=== PATIENT | female | born 1965 | race Caucasian/White ===

== ENCOUNTER 2018-04-24 04:14 | Emergency (ER) | payer SELFPAY ==
[2018-04-24 04:25] VITALS: BP 154/75; PULSE 58; TEMP 98.1; BMI 33.3
--- NOTE | 2018-04-24 04:28 | PDOC ---
History of Present Illness - General History Source: Patient Exam Limitations: No Limitations - History of Present Illness Initial Comments: 04/24/18 04:40 The patient is a 52 year old female with no significant past medical history who presents to the emergency department with a sore throat for about 1 week. The patient reports she has been putting off coming into the ED but her throat pain has worsened. The patient reports that her throat pain is worsened with eating. She state s that she has noted some associated bleeding with her throat pain and her pain is uncomfortable. The patient does endorse smoking several cigarettes a day. She denies any other symptoms or complaints. She denies any cough, sich contact, fever, chills, nausea or vomiting. <Suha Hawkins - Last Filed: 04/24/18 04:40> <Sherry Landaverde - Last Filed: 04/24/18 05:16> - General Chief Complaint: Sore Throat Stated Complaint: THROAT PAIN Time Seen by Provider: 04/24/18 04:28 Past History <Suha Hawkins - Last Filed: 04/24/18 04:40> - Past Medical History COPD: No HTN: Yes - Surgical History Cholecystectomy: Yes - Immunization History Immunization Up to Date: Yes - Suicide/Smoking/Psychosocial Hx Smoking History: Current every day smoker Have you smoked in the past 12 months: Yes Number of Cigarettes Smoked Daily: 5 Information on smoking cessation initiated: No Hx Alcohol Use: No Drug/Substance Use Hx: No <Sherry Landaverde - Last Filed: 04/24/18 05:16> - Past Medical History Allergies/Adverse Reactions: Allergies Allergy/AdvReac Type Severity Reaction Status Date / Time No Known Allergies Allergy Verified 04/24/18 04:25 Review of Systems - Review of Systems Able to Perform ROS?: Yes Comments:: 04/24/18 04:40 GENERAL/CONSTITUTIONAL: No fever or chills. No weakness. HEAD, EYES, EARS, NOSE AND THROAT: (+)throat pain. No change in vision. No ear pain or discharge. No sore throat. GASTROINTESTINAL: No nausea, vomiting, diarrhea or constipation. GENITOURINARY: No dysuria, frequency, or change in urination. CARDIOVASCULAR: No chest pain or shortness of breath. RESPIRATORY: No cough, wheezing, or hemoptysis. MUSCULOSKELETAL: No joint or muscle swelling or pain. No neck or back pain. SKIN: No rash NEUROLOGIC: No headache, vertigo, loss of consciousness, or change in strength/ sensation. ENDOCRINE: No increased thirst. No abnormal weight change. HEMATOLOGIC/LYMPHATIC: No anemia, easy bleeding, or history of blood clots. ALLERGIC/IMMUNOLOGIC: No hives or skin allergy. <Suha Hawkins - Last Filed: 04/24/18 04:40> *Physical Exam - Vital Signs Last Vital Signs Temp Pulse Resp BP Pulse Ox 98.1 F 58 L 17 154/75 98 04/24/18 04:22 04/24/18 04:22 04/24/18 04:22 04/24/18 04:22 04/24/18 04:22 - Physical Exam Comments: 04/24/18 04:41 GENERAL: Awake, in no acute distress HEAD: No signs of trauma EYES: PERRLA, EOMI, sclera anicteric, conjunctiva clear, visual acuity grossly intact ENT: Auricles normal inspection, hearing grossly normal, nares patent, oropharynx clear without exudates. Moist mucosa NECK: Normal ROM, supple, no lymphadenopathy, JVD, or masses LUNGS: Breath sounds equal, clear to auscultation bilaterally. No wheezes, and no crackles. Normal work of breathing. HEART: Regular rate and rhythm, normal S1 and S2, no murmurs, rubs or gallops ABDOMEN: Soft, nontender, normoactive bowel sounds. No guarding, no rebound. No masses. Non-distended. CHEST WALL: BACK: No midline tenderness. EXTREMITIES: Normal range of motion, no edema. No clubbing or cyanosis. No erythema, or tenderness NEUROLOGICAL: Alert, and fully oriented x4, Cranial nerves II through XII grossly intact. Normal speech, normal gait. DTRs 2/4 bilaterally. SKIN: Warm, Dry, normal turgor, no rashes or lesions noted. <Suha Hawkins - Last Filed: 04/24/18 04:40> - Vital Signs Last Vital Signs Temp Pulse Resp BP Pulse Ox 98.1 F 58 L 17 154/75 98 04/24/18 04:22 04/24/18 04:22 04/24/18 04:22 04/24/18 04:22 04/24/18 04:22 <Sherry Landaverde - Last Filed: 04/24/18 05:16> Moderate Sedation - Procedure Monitoring Vital Signs: Procedure Monitoring Vital Signs Temperature 98.1 F 04/24/18 04:22 Pulse Rate 58 L 04/24/18 04:22 Respiratory Rate 17 04/24/18 04:22 Blood Pressure 154/75 04/24/18 04:22 O2 Sat by Pulse Oximetry (%) 98 04/24/18 04:22 <Suha Hawkins - Last Filed: 04/24/18 04:40> - Procedure Monitoring Vital Signs: Procedure Monitoring Vital Signs Temperature 98.1 F 04/24/18 04:22 Pulse Rate 58 L 04/24/18 04:22 Respiratory Rate 17 04/24/18 04:22 Blood Pressure 154/75 04/24/18 04:22 O2 Sat by Pulse Oximetry (%) 98 04/24/18 04:22 <Sherry Landaverde Adrianna - Last Filed: 04/24/18 05:16> *DC/Admit/Observation/Transfer - Attestations Scribe Attestion: 04/24/18 04:41 Documentation prepared by Suha Hawkins, acting as medical center director for Sherry Landaverde DO, MD. <Suha Hawkins - Last Filed: 04/24/18 04:40> - Discharge Dispostion Decision to Admit order: No - Attestations Physician Attestion: 04/24/18 05:15 I, Dr Sherry Landaverde, attest that this document has been prepared under my direction and personally reviewed by me in its entirety. I further attest, that it accurately reflects all work, procedures and medical decision making performed by me. <Sherry Landaverde Adrianna - Last Filed: 04/24/18 05:16> Diagnosis at time of Disposition: Sore throat - Discharge Dispostion Disposition: HOME Condition at time of disposition: Stable - Referrals Referrals: Jeet Ramirez MD [Staff Physician] - - Patient Instructions Printed Discharge Instructions: Sore Throat Additional Instructions: You have been given you have been given follow-up with the medical clinic. He should establish care there and they will assist you with additional follow-up such as ENT as necessary. If you develop fever or difficulty swallowing or difficulty breathing return to the emergency department.
== END 2018-04-24 05:21 | disposition home or self-care (01) ==
LOC: JER 04:14
DX: J02.9 Acute pharyngitis, unspecified (principal); I10 Essential (primary) hypertension
CPT/HCPCS: 87070; 87880; 99281-25

== ENCOUNTER 2018-07-24 20:23 | Emergency (ER) | payer OTHER | END 2018-07-25 02:09 | disposition home or self-care (01) | LOC: JER 07-25 02:09 → JERFT 20:23 ==

== ENCOUNTER 2018-08-28 01:00 | Emergency (ER) | payer OTHER ==
--- NOTE | 2018-08-28 01:39 | PDOC ---
Medical Decision Making - Medical Decision Making 08/28/18 01:39 Patient seen by the advanced practice provider under my direct supervision. Ancillary testing reviewed as necessary. I agree with plan as outlined by the advanced practice provider. *DC/Admit/Observation/Transfer Diagnosis at time of Disposition: Sore throat - Discharge Dispostion Condition at time of disposition: Fair - Referrals Referrals: Jeet Ramirez MD [Primary Care Provider] - - Patient Instructions - Post Discharge Activity
--- NOTE | 2018-08-28 01:53 | PDOC ---
History of Present Illness - General Chief Complaint: Pain, Acute Stated Complaint: WEAKNESS/THROAT PAIN Time Seen by Provider: 08/28/18 01:29 History Source: Patient - History of Present Illness Initial Comments: 08/28/18 03:41 52 year old female c/o throat burning sensation for the last several months. reports that she 2 weeks stopped smoking cigarettes unsure if the symptoms are related. denies abdominal pain, chest pain, nausea/ vomiting, fever/ chills Past History - Past Medical History Allergies/Adverse Reactions: Allergies Allergy/AdvReac Type Severity Reaction Status Date / Time No Known Allergies Allergy Verified 08/28/18 02:27 Home Medications: Ambulatory Orders Cefuroxime Axetil [Cefuroxime] 500 mg PO BID #20 tablet 07/25/18 Phenazopyridine HCl [Pyridium] 100 mg PO BID #4 tablet 07/25/18 Mag Hydrox/Al Hydrox/Simeth [Mylanta Suspension -] 30 ml PO Q6H PRN #1 bottle COPD: No HTN: Yes - Surgical History Cholecystectomy: Yes - Immunization History Immunization Up to Date: Yes - Suicide/Smoking/Psychosocial Hx Smoking History: Never smoked Have you smoked in the past 12 months: Yes Number of Cigarettes Smoked Daily: 5 Hx Alcohol Use: No Drug/Substance Use Hx: No *Physical Exam - Vital Signs 08/28/18 03:43 Last Vital Signs Temp Pulse Resp BP Pulse Ox 98.9 F 55 L 16 131/83 99 08/28/18 01:00 08/28/18 01:00 08/28/18 01:00 08/28/18 01:00 08/28/18 01:00 - Physical Exam General Appearance: Yes: Appropriately Dressed HEENT: positive: Normal ENT Inspection Respiratory/Chest: positive: Lungs Clear, Normal Breath Sounds Cardiovascular: positive: Regular Rhythm, Regular Rate Gastrointestinal/Abdominal: positive: Normal Bowel Sounds, Soft. negative: Tender Musculoskeletal: positive: Normal Inspection Integumentary: positive: Normal Color, Dry, Warm Neurologic: positive: Fully Oriented, Alert, Normal Mood/Affect Medical Decision Making - Medical Decision Making 08/28/18 04:20 A: sore throat (chronic) P: [facility] outpatient GO/ ENT referral given *DC/Admit/Observation/Transfer Diagnosis at time of Disposition: Sore throat - Discharge Dispostion Disposition: HOME Condition at time of disposition: Fair - Prescriptions Prescriptions: Mag Hydrox/Al Hydrox/Simeth [Mylanta Suspension -] 30 ml PO Q6H PRN #1 bottle PRN Reason: Dyspepsia - Referrals Referrals: Jeet Ramirez MD [Primary Care Provider] - Call tomorrow Rishabh,Ney Macdonald MD [Staff Physician] - Stephan Ott MD [Staff Physician] - - Patient Instructions Printed Discharge Instructions: Sore Throat Additional Instructions: please follow up with your doctor as soon as possible - Post Discharge Activity Forms/Work/School Notes: Back to Work
[2018-08-28 02:27] VITALS: BP 131/83; PULSE 55; TEMP 98.9; BMI 25.0
[2018-08-28] MEDS ORDERED: MAG HYDROX/AL HYDROX/SIMETH 30 ML UNIT-DOSE CUP PO ONE (02:30)
[2018-08-28] MEDS ORDERED: MAG HYDROX/AL HYDROX/SIMETH 30 ML UNIT-DOSE CUP ONE (02:44)
== END 2018-08-28 04:00 | disposition home or self-care (01) ==
LOC: JER 01:00
DX: J02.9 Acute pharyngitis, unspecified (principal)
CPT/HCPCS: 99281-25

== ENCOUNTER 2019-03-19 18:44 | Emergency (ER) | payer OTHER ==
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
[2019-03-19 18:56] VITALS: BP 131/88; PULSE 64; TEMP 98; BMI 33.3
[2019-03-19] MEDS ORDERED: KETOROLAC TROMETHAMINE 60 MG/2 ML VIAL IM ONE (19:55)
[2019-03-19] MEDS ORDERED: KETOROLAC TROMETHAMINE 60 MG/2 ML VIAL ONE (20:01)
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
== END 2019-03-19 21:15 | disposition home or self-care (01) ==
LOC: JERFT 18:44
PROC: 3E0233Z Introduction of Anti-inflammatory into Muscle, Percutaneous Approach (ICD-10-PCS; principal; 2019-03-19)
DX: S16.1XXA Strain of muscle, fascia and tendon at neck level, initial encounter (principal); S80.02XA Contusion of left knee, initial encounter; V43.52XA Car driver injured in collision with other type car in traffic accident, initial encounter; Y92.414 Local residential or business street as the place of occurrence of the external cause; Y93.89 Activity, other specified; Y99.8 Other external cause status; I10 Essential (primary) hypertension
CPT/HCPCS: 99281-25

== ENCOUNTER 2020-11-03 21:33 | Emergency (ER) | payer OTHER ==
[2020-11-03 21:58] VITALS: BP 141/77; PULSE 62; TEMP 97; BMI 32.4
[2020-11-03 22:49] LABS: EPI CELLS 3 /uL (0-25.1); HYALINE CASTS 1 /uL (0-3.1); URINE APPEARANCE CLOUDY; URINE BACTERIA 258 /uL (0-1359); URINE BILIRUBIN NEGATIVE (NEGATIVE); URINE COLOR YELLOW; URINE GLUCOSE (UA) NEGATIVE (NEGATIVE); URINE KETONE NEGATIVE (NEGATIVE); URINE LEUK ESTERASE 3+ (NEGATIVE); URINE NITRITE NEGATIVE (NEGATIVE); URINE PROTEIN 2+ (NEGATIVE); URINE RBC 1099 /uL (0-23.9); URINE UROBILINOGEN 0.2 mg/dL (0.2-1.0); URINE WBC 2196 /uL (0-25.8)
[2020-11-03] MEDS ORDERED: CEPHALEXIN MONOHYDRATE 500 MG CAPSULE (UD) PO ONE (22:52)
[2020-11-03] MEDS ORDERED: CEPHALEXIN MONOHYDRATE 500 MG CAPSULE (UD) ONE (23:08)
== END 2020-11-03 23:15 | disposition home or self-care (01) ==
LOC: JER 21:33
DX: M54.5 Low back pain (principal); R30.0 Dysuria; N30.00 Acute cystitis without hematuria
CPT/HCPCS: 81003; 87086; 87186; 99283-25

== ENCOUNTER 2021-02-27 22:41 | Emergency (ER) | payer SELFPAY ==
[2021-02-27 22:50] VITALS: BP 160/97; PULSE 86; TEMP 98; BMI 33.3
[2021-02-28 01:08] LABS: EPI CELLS 2 /uL (0-25.1); HYALINE CASTS 1 /uL (0-3.1); URINE APPEARANCE CLOUDY; URINE BACTERIA 20 /uL (0-1359); URINE BILIRUBIN NEGATIVE (NEGATIVE); URINE COLOR YELLOW; URINE GLUCOSE (UA) NEGATIVE (NEGATIVE); URINE KETONE NEGATIVE (NEGATIVE); URINE LEUK ESTERASE 3+ (NEGATIVE); URINE NITRITE NEGATIVE (NEGATIVE); URINE PROTEIN 1+ (NEGATIVE); URINE RBC 36 /uL (0-23.9); URINE UROBILINOGEN 0.2 mg/dL (0.2-1.0); URINE WBC 1812 /uL (0-25.8)
[2021-02-28] MEDS ORDERED: PHENAZOPYRIDINE HCL 100 MG TABLET (FP) PO ONE (01:36)
[2021-02-28] MEDS ORDERED: IBUPROFEN 400 MG TABLET (FP) PO ONE (01:37)
[2021-02-28] MEDS ORDERED: PHENAZOPYRIDINE HCL 100 MG TABLET (FP) ONE (01:40)
[2021-02-28] MEDS ORDERED: CEPHALEXIN MONOHYDRATE 500 MG CAPSULE (UD) PO ONE (01:47)
[2021-02-28] MEDS ORDERED: CEPHALEXIN MONOHYDRATE 500 MG CAPSULE (UD) ONE (01:51)
== END 2021-02-28 02:47 | disposition home or self-care (01) ==
LOC: JER 22:41
DX: N39.0 Urinary tract infection, site not specified (principal)
CPT/HCPCS: 81003; 87086; 99283-25

== ENCOUNTER 2021-03-19 18:34 | Emergency (ER) | payer OTHER ==
[2021-03-19 18:40] VITALS: BP 140/87; PULSE 71; TEMP 98; BMI 29.9
[2021-03-19] MEDS ORDERED: KETOROLAC TROMETHAMINE 30 MG/1 ML VIAL IM ONE (19:35)
[2021-03-19] MEDS ORDERED: CYCLOBENZAPRINE HCL 10 MG TABLET (FP) PO ONE (19:37)
[2021-03-19] MEDS ORDERED: CYCLOBENZAPRINE HCL 10 MG TABLET (FP) ONE (19:51)
[2021-03-19] MEDS ORDERED: KETOROLAC TROMETHAMINE 30 MG/1 ML VIAL ONE (19:52)
== END 2021-03-19 21:46 | disposition home or self-care (01) ==
LOC: JERFT 18:34
PROC: 3E0233Z Introduction of Anti-inflammatory into Muscle, Percutaneous Approach (ICD-10-PCS; principal; 2021-03-19)
DX: S16.1XXA Strain of muscle, fascia and tendon at neck level, initial encounter (principal); M54.50 Low back pain, unspecified; V49.40XA Driver injured in collision with unspecified motor vehicles in traffic accident, initial encounter
CPT/HCPCS: 72040-TC; 72100-TC-FY; 99284-25

== ENCOUNTER 2021-06-18 21:44 | Emergency (ER) | payer SELFPAY ==
[2021-06-18 21:50] VITALS: BP 124/84; PULSE 72; TEMP 98.1; BMI 32.3
[2021-06-18 22:59] LABS: EPI CELLS 8 /uL (0-25.1); HYALINE CASTS 0 /uL (0-3.1); URINE APPEARANCE CLEAR; URINE BILIRUBIN 1+ (NEGATIVE); URINE COLOR ORANGE; URINE GLUCOSE (UA) NEGATIVE (NEGATIVE); URINE KETONE NEGATIVE (NEGATIVE); URINE LEUK ESTERASE 1+ (NEGATIVE); URINE NITRITE POSITIVE (NEGATIVE); URINE PROTEIN TRACE (NEGATIVE); URINE RBC 14 /uL (0-23.9); URINE WBC 40 /uL (0-25.8)
[2021-06-18 23:13] LABS: BASO % 0.8 % (0-2.0); EOS % 2.3 % (0-4.5); HEMATOCRIT 37.9 % (32.4-45.2); HEMOGLOBIN 12.5 GM/dL (10.7-15.3); MCHC 33.1 g/dl (32.0-36.0); MEAN CELL VOLUME 78.3 fl (80-96); MEAN PLT VOLUME 7.3 fl (7.5-11.1); MONO % 6.7 % (3.8-10.2); NEUT % 54.2 % (42.8-82.8); PLATELET COUNT 250 10^3/uL (134-434); RBC 4.83 M/mm3 (3.60-5.2); RDW 15.3 % (11.6-15.6); WHITE BLOOD COUNT 5.1 K/mm3 (4.0-10.0)
[2021-06-18 23:31] LABS: CALCIUM 8.9 mg/dL (8.5-10.1)
[2021-06-18 23:32] LABS: ALBUMIN 3.4 g/dl (3.4-5.0); BLOOD UREA NITROGEN 19.9 mg/dL (7-18)
[2021-06-18 23:35] LABS: CREATININE 0.9 mg/dL (0.55-1.3)
[2021-06-18 23:36] LABS: BILIRUBIN,TOTAL 0.3 mg/dL (0.2-1)
[2021-06-18 23:37] LABS: TOT PROT 6.9 g/dl (6.4-8.2)
[2021-06-18] MEDS ORDERED: ACETAMINOPHEN 325 MG TABLET (FP) PO ONE (23:54)
[2021-06-19] MEDS ORDERED: ACETAMINOPHEN 325 MG TABLET (FP) ONE (00:06)
== END 2021-06-19 00:42 | disposition home or self-care (01) ==
LOC: JER 21:44
DX: N39.0 Urinary tract infection, site not specified (principal)
CPT/HCPCS: 36415; 80053; 81003; 85025; 87086; 99283-25

== ENCOUNTER 2022-07-02 22:22 | Emergency (ER) | payer OTHER ==
[2022-07-02 22:34] VITALS: BP 164/66; PULSE 69; RESP 20; TEMP 98.9; BMI 31.6
[2022-07-02] MEDS ORDERED: ACETAMINOPHEN 500 MG TABLET (FP) PO ONE (22:51)
[2022-07-02] MEDS ORDERED: ACETAMINOPHEN 325 MG TABLET (FP) ONE (23:16)
== END 2022-07-03 00:47 | disposition home or self-care (01) ==
LOC: JER 22:22
DX: R68.84 Jaw pain (principal)
CPT/HCPCS: 87651; 99283-25

== ENCOUNTER 2022-10-17 22:11 | Emergency (ER) | payer OTHER ==
[2022-10-17 22:25] VITALS: BP 181/103; PULSE 56; RESP 16; TEMP 98.2; BMI 31.6
[2022-10-18] MEDS ORDERED: KETOROLAC TROMETHAMINE 60 MG/2 ML VIAL ONE (01:20)
[2022-10-18] MEDS ORDERED: KETOROLAC TROMETHAMINE 30 MG/1 ML VIAL IM ONE (01:37)
== END 2022-10-18 02:02 | disposition home or self-care (01) ==
LOC: JERFT 22:11 → JER 22:11 → JERFT 10-18 02:02
PROC: 3E0233Z Introduction of Anti-inflammatory into Muscle, Percutaneous Approach (ICD-10-PCS; principal; 2022-10-18)
DX: M54.50 Low back pain, unspecified (principal)
CPT/HCPCS: 99284-25

== ENCOUNTER 2022-10-27 01:13 | Emergency (ER) | payer OTHER ==
[2022-10-27 01:20] VITALS: BP 168/92; PULSE 60; RESP 18; TEMP 97.5; BMI 31.6
[2022-10-27] MEDS ORDERED: ACETAMINOPHEN 325 MG TABLET (FP) PO ONE (02:18)
[2022-10-27] MEDS ORDERED: diazePAM 5 MG TABLET PO ONE (02:18)
[2022-10-27] MEDS ORDERED: KETOROLAC TROMETHAMINE 15 MG/ML VIAL IM ONE (02:18)
[2022-10-27] MEDS ORDERED: LIDOCAINE 5% TOPICAL PATCH TP ONE (02:19)
[2022-10-27] MEDS ORDERED: ACETAMINOPHEN 325 MG TABLET (FP) ONE (02:24)
[2022-10-27] MEDS ORDERED: diazePAM 5 MG TABLET ONE (02:25)
[2022-10-27] MEDS ORDERED: LIDOCAINE 5% TOPICAL PATCH ONE (02:25)
[2022-10-27] MEDS ORDERED: KETOROLAC TROMETHAMINE 15 MG/ML VIAL ONE (02:26)
[2022-10-27] MEDS ORDERED: LIDOCAINE HCL 1%, 10 MG/ML (50 mL VIAL) SQ ONE (02:34)
[2022-10-27] MEDS ORDERED: LIDOCAINE PATCH REMOVAL MC SCH (22:00)
== END 2022-10-27 04:12 | disposition home or self-care (01) ==
LOC: JER 01:13
PROC: 3E0233Z Introduction of Anti-inflammatory into Muscle, Percutaneous Approach (ICD-10-PCS; principal; 2022-10-27)
PROC: 3E023GC Introduction of Other Therapeutic Substance into Muscle, Percutaneous Approach (ICD-10-PCS; 2022-10-27)
DX: M54.50 Low back pain, unspecified (principal); G89.29 Other chronic pain
CPT/HCPCS: 72110-TC-FY; 99284-25

== ENCOUNTER 2023-04-27 23:35 | Emergency (ER) | payer OTHER ==
[2023-04-27 23:41] VITALS: RESP 18; TEMP 98.6; BMI 32.4
[2023-04-28] MEDS ORDERED: ACETAMINOPHEN INJECTION 100 ML IVPB ONE (01:27)
[2023-04-28] MEDS ORDERED: ONDANSETRON 4 MG/2 ML VIAL ONE (01:27)
[2023-04-28] MEDS ORDERED: FAMOTIDINE 20 MG/50 ML IVPB 20 MG/50 ML MG IVPB ONE (01:28)
[2023-04-28] MEDS: LACTATED RINGERS SOLUTION 1000 ML INFUS.BAG IV ONE (01:35)
[2023-04-28] MEDS: ONDANSETRON 4 MG/2 ML VIAL IVPUSH ONE (01:35)
[2023-04-28] MEDS: ACETAMINOPHEN 1000 MG/100 ML BAG IVPB ONE (01:35)
[2023-04-28 01:36] LABS: BASO % 1.4 % (0-2.0); HEMATOCRIT 35.7 % (32.4-45.2); HEMOGLOBIN 11.8 GM/dL (10.7-15.3); LYMPH % 28.5 % (8-40); MCH 25.8 pg (25.7-33.7); MEAN CELL VOLUME 78.2 fl (80-96); MEAN PLT VOLUME 6.9 fl (7.5-11.1); MONO % 6.2 % (3.8-10.2); NEUT % 61.9 % (42.8-82.8); PLATELET COUNT 258 10^3/uL (134-434); RBC 4.57 M/mm3 (3.60-5.2); RDW 15.8 % (11.6-15.6); WHITE BLOOD COUNT 7.2 K/mm3 (4.0-10.0)
[2023-04-28 01:40] LABS: EPI CELLS 17 /uL (0-25.1); HYALINE CASTS 0 /uL (0-3.1); PH,URINE 6.5 (5.0-8.0); URINE APPEARANCE CLOUDY; URINE BACTERIA 315 /uL (0-1359); URINE BILIRUBIN NEGATIVE (NEGATIVE); URINE COLOR YELLOW; URINE GLUCOSE (UA) NEGATIVE (NEGATIVE); URINE KETONE NEGATIVE (NEGATIVE); URINE LEUK ESTERASE 3+ (NEGATIVE); URINE NITRITE NEGATIVE (NEGATIVE); URINE PROTEIN 2+ (NEGATIVE); URINE RBC 1636 /uL (0-23.9); URINE UROBILINOGEN 0.2 mg/dL (0.2-1.0); URINE WBC 1830 /uL (0-25.8)
[2023-04-28 02:02] LABS: POTASSIUM 3.9 mmol/L (3.5-5.1)
[2023-04-28 02:04] LABS: ALBUMIN 3.6 g/dl (3.4-5.0); BLOOD UREA NITROGEN 8.5 mg/dL (7-18); CALCIUM 9.1 mg/dL (8.5-10.1)
[2023-04-28 02:07] LABS: CREATININE 0.7 mg/dL (0.55-1.3)
[2023-04-28] MEDS: FAMOTIDINE 20 MG/50 ML IVPB 20 MG/50 ML MG IVPB ONE (02:08)
[2023-04-28 02:09] LABS: BILIRUBIN,TOTAL 0.5 mg/dL (0.2-1)
[2023-04-28] MEDS ORDERED: CEFTRIAXONE 1 GM/50 ML BAG ONE (02:36)
[2023-04-28] MEDS: CEFTRIAXONE 1,000 MG in DEXTROSE 5%-WATER - 50 ML IVPB ONE (02:44)
[2023-04-28 03:50] VITALS: BP 138/75; PULSE 60
== END 2023-04-28 05:40 | disposition home or self-care (01) ==
LOC: JER 23:35
PROC: 3E03329 Introduction of Other Anti-infective into Peripheral Vein, Percutaneous Approach (ICD-10-PCS; principal; 2023-04-28)
PROC: 3E033GC Introduction of Other Therapeutic Substance into Peripheral Vein, Percutaneous Approach (ICD-10-PCS; 2023-04-28)
PROC: 3E033NZ Introduction of Analgesics, Hypnotics, Sedatives into Peripheral Vein, Percutaneous Approach (ICD-10-PCS; 2023-04-28)
PROC: 3E033GC Introduction of Other Therapeutic Substance into Peripheral Vein, Percutaneous Approach (ICD-10-PCS; 2023-04-28)
DX: R30.0 Dysuria (principal); R10.30 Lower abdominal pain, unspecified; M54.9 Dorsalgia, unspecified; N39.0 Urinary tract infection, site not specified; R31.9 Hematuria, unspecified; Z20.822 Contact with and (suspected) exposure to COVID-19
CPT/HCPCS: 0241U-QW; 36415; 74176-TC; 80053; 81003; 83690; 85025; 87086; 87186; 99284-25; J0131